=== PATIENT | female | born 1935 | race Caucasian/White ===

== ENCOUNTER 2016-10-28 02:18 | Emergency (ER) | payer OTHER ==
[2016-10-28 02:24] VITALS: BMI 18.3
[2016-10-28] MEDS ORDERED: CATAPRES TAB 0.2 MG PO ONE (03:13)
[2016-10-28] MEDS ORDERED: CATAPRES TAB 0.2 MG ONE (03:16)
--- NOTE | 2016-10-28 03:19 | DR.GENAD ---
HPI - PCP Primary Care Physician: GUSTAVO - Complaint/Symptoms Chief Complaint Doctors Comments: Patient states she has been taking her blood pressure tonight and it has been high for a while. States it was 189/85 earlier today and she went for a walk and it came down for a while then it went back up to 206/107 and 195/108. States she has been checking her blood pressure several times tonight and it has not come down. She denies chest pain , SOB, nausea, vomiting or blurred vision or headaches. states she is a patient of Dr. Kim and she has been taking Metoprolol 50mg twice daily for a long time with other medicines including Estradiol 0.5mg qhs. states they are remodeling her house since her and one of her dauhters is staying with her. She denies problems with her hands or feet swelling. States she has problems worrying about everyone. Chief Complaint:: PT STATES HER BP IS HIGH - Nurses notes reviewed Nurses Notes Review: Yes - Source History Provided: Patient - Mode of Arrival Mode of Arrival: Ambulatory - Timing Onset of Chief Complaint: 10/28/16 Came on: Gradually - Duration Duration: Constant How lon Duration: Days - Location Location: high blood press - Severity Severity: Moderate - Modifying Factors Worsens:: nothing Improves:: nothing PMH - PMH Past Medical History: Yes Past Medical History: Hypertension Past Surgical History: Yes Surgical History: Hysterectomy Past Surgical History Comment: CATARACT - Family History History of Family Medical Conditions: Yes Family Medical History: Cancer, OR - Social History Alcohol Use: None Do you use any recreational Drugs:: No Lives With: Family Lives Where: Home - infectious screening In the last 2 months have you had wt loss of >10#?: NO Have you had fever, night sweats or hemotysis?: No Have you traveled outside the country in the last 6 months?: No Isolation: Standard ROS - Review of Systems Constitutional: No Symptoms Reported Eyes: No Symptoms Reported ENTM: No Symptoms Reported Respiratoy: No Symptoms Reported Cardiovascular: No Symptoms Reported. negative: See HPI, Chest Pain, Edema, Palpitations, Syncope, Cyanosis, Skin Mottling, Other Gastrointestinal/Abdominal: No Symptoms Reported, See HPI. negative: Abdominal Pain, Constipation, Diarrhea, Nausea, Vomiting, Food Intolerance, Other Genitourinary: No Symptoms Reported Neurological: No Symptoms Reported Musculoskeletal: No Symptoms Reported Integumentary: No Symptoms Reported Hematologic/Lymphatic: No Symptoms Reported Endocrine: No Symptoms Reported Psychiatric: No Symptoms Reported, Anxiety PE - Vital Signs Vitals: Temperature 99.1 F Pulse Rate [Right Brachial] 55 Pulse Rate 65 Respiratory Rate 20 Blood Pressure [Right Arm] 102/64 Blood Pressure [Left Arm] 177/86 Blood Pressure 229/100 O2 Sat by Pulse Oximetry 100 - General Limitations: No Limitations General Appearance: Alert, In No Apparent Distress - Head Head Exam: Normal Inspection, Atraumatic, Normocephalic - Eyes Eye exam: Normal Appearance, PERRL, EOMI. negative: Scleral Icterus, Conjunctival Injection, Nystagmus, Miosis, Mydrasis, Periorbital Swelling, Periorbital Tenderness, Other - ENT ENT Exam: Normal Exam, Normal Oropharynx, Normal External Ear Exam, Mucous Membranes Moist, TM's Normal Bilaterally External Ear Exam: Normal External Inspection TM/Canal Exam: Bilateral Normal Nose Exam: Normal Nose Exam Mouth Exam: Normal Inspection Throat Exam: Normal Inspection - Neck Neck Exam: Normal Inspection, Full ROM, Trachea Midline. negative: Tenderness, Meningismus, Lymphadenopathy, Thyromegaly, Other - Chest Chest Inspection: Normal Inspection, Symmetric Chest Wall Rise - Respiratory Respiratory Exam: Normal Lung Sounds Bilat Respiratory Exam: Bilateral Clear to Auscultation - Cardiovascular Cardiovascular Exam: Regular Rate, Normal Rhythm, Normal Heart Sounds. negative : Bradycardia, Tachycardia, Irregular Rhythm, Systolic Murmur, Diastolic Murmur , Rubs, Gallop, Clicks, JVD, +S1, +S2, +S3, +S4, Other - Abdominal Exam Abdominal Exam: Normal Inspection, Normal Bowel Sounds, Soft. negative: Distention, Tenderness, Guarding, Rebound, Rigidity, Dimnished Bowel Sounds, Hyperactive Bowel Sounds, Hypoactive Bowel Sounds, Organomegaly, Trauma, Incision, Ascites, Mass, Bruit, Pulsatile Mass, Hernia, Other Abdominal Tenderness: negative: RUQ, RLQ, LUQ, LLQ, Epigastrium, Suprapubic, Diffuse, Mild, Moderate, Severe, Other - Extremities Extremities Exam: Normal Inspection, Full ROM, Normal Capillary Refill. negative: Tenderness, Edema, Joint Swelling, Calf Tenderness, Other - Back Back Exam: Normal Inspection, Full ROM. negative: Tenderness, (R) CVA Tenderness, (L) CVA Tenderness, Muscle Spasm, Paraspinal Tenderness, Vertebral Tenderness, Rashes, (R) Sciatic Notch Tenderness, (L) Sciatic Notch Tendern, (R ) Straight Leg Raise, (L) Straight Leg Raise, Other - Neurologic Neurological Exam: Alert, Oriented X3, CN II-XII Intact, Normal Gait, Reflexes Normal - Psychiatric Psychiatric Exam: Normal Affect, Normal Mood. negative: Depressed, Agitated, Anxious, Flat Affect, Manic, Homicidal Ideation, Suicidal Ideation, Other - Skin Skin Exam: Warm, Dry, Intact, Normal Color. negative: Rash, Cyanosis, Diaphoresis, Erythema, Pallor, Mottled, Other ROR - Labs Reviewed Laboratory Results Reviewed?: Yes (All labs and x-ray results reviewed and discussed with patient) Result Diagrams: 10/28/16 03:30 10/28/16 03:30 Laboratory: WBC 6.4 X10^3/uL (3.6-10.0) 10/28/16 03:30 RBC 4.48 X10^6/uL (3.5-5.4) 10/28/16 03:30 Hgb 13.4 g/dL (12.0-16.0) 10/28/16 03:30 Hct 38.0 % (36.0-47.0) 10/28/16 03:30 MCV 85.0 fL (80.0-100.0) 10/28/16 03:30 MCH 30.0 pg (27.0-34.0) 10/28/16 03:30 MCHC 35.3 g/dL (33.0-35.0) H 10/28/16 03:30 RDW 12.2 % (11.6-16.5) 10/28/16 03:30 Plt Count 301 X10^3/uL (150.0-450.0) 10/28/16 03:30 MPV 7.6 fL (7.4-11.0) 10/28/16 03:30 Neut % 53.5 % (42.0-75.0) 10/28/16 03:30 Lymph % 34.0 % (21.0-51.0) 10/28/16 03:30 [place] % 9.1 % (0.0-13.0) 10/28/16 03:30 Eos % 2.1 % (0.9-2.9) 10/28/16 03:30 Baso % 1.3 % (0.2-1.0) H 10/28/16 03:30 Neut # 3.5 x10^3/uL (2.2-4.8) 10/28/16 03:30 Lymph # 2.2 X10^3/uL (1.3-2.9) 10/28/16 03:30 [place] # 0.6 x10^3/uL (0.3-0.8) 10/28/16 03:30 Eos # 0.1 x10^3/uL (0.0-0.2) 10/28/16 03:30 Baso # 0.1 X10^3/uL (0.0-0.1) 10/28/16 03:30 Absolute Nucleated RBC 0.0 /100WBC 10/28/16 03:30 INR Target Range - 10/28/16 03:30 INR 0.96 (0.8-1.3) 10/28/16 03:30 PTT 27.1 SECONDS (22.9-36.5) 10/28/16 03:30 PTT Comment - 10/28/16 03:30 Sodium 135 mmol/L (136-145) L 10/28/16 03:30 Corrected Sodium TNP 10/28/16 03:30 Potassium 4.7 mmol/L (3.5-5.1) 10/28/16 03:30 Chloride 97 mmol/L (98-107) L 10/28/16 03:30 Carbon Dioxide 28.5 mmol/L (21-32) 10/28/16 03:30 BUN 9 mg/dL (7-18) 10/28/16 03:30 Creatinine 0.78 mg/dL (0.55-1.02) 10/28/16 03:30 Est GFR (MDRD) Af Amer > 60 (>60) 10/28/16 03:30 Est GFR (MDRD) Non-Af > 60 (>60) 10/28/16 03:30 Glucose 98 mg/dL (65-99) 10/28/16 03:30 Calcium 9.3 mg/dL (8.5-10.1) 10/28/16 03:30 Corrected Calcium TNP 10/28/16 03:30 Magnesium 1.9 mg/dL (1.7-2.9) 10/28/16 03:30 Total Bilirubin 0.50 mg/dL (0.2-1.0) 10/28/16 03:30 AST 16 Units/L (15-37) 10/28/16 03:30 ALT 21 Units/L (12-78) 10/28/16 03:30 Alkaline Phosphatase 73 Units/L (46-116) 10/28/16 03:30 Creatine Kinase 56 Units/L (26-192) 10/28/16 03:30 CK-MB (CK-2) 2.3 ng/mL (0-4.0) 10/28/16 03:30 CK/CKMB % Calc 4.1 % (<4) 10/28/16 03:30 Troponin I < 0.02 ng/mL (0-1.5) 10/28/16 03:30 Total Protein 8.3 g/dL (6.4-8.2) H 10/28/16 03:30 Albumin 4.1 g/dL (3.4-5.0) 10/28/16 03:30 Globulin 4.2 g/dL (2.5-4.5) 10/28/16 03:30 Albumin/Globulin Ratio 1.0 Ratio (1.1-2.1) L 10/28/16 03:30 - XRAY XRAY Interpreted by: Radiologist (CXR: Normal chest x-ray.) - EKG Rate: 63 [place]: Normal Rhythm: NSR Block: None ST: Nonsp - Diagnosis Discharge Problem: Essential hypertension, Anxiety neurosis - Discharge Plan Disposition: 01 HOME, SELF-CARE Condition: Stable - Follow ups/Referrals Follow ups/Referrals: Paulino Kim [Primary Care Provider] - 3 days - Instructions Instructions: Hypertension
[2016-10-28 03:45] LABS: BASOPHILS # (AUTO) 0.1 X10^3/uL (0.0-0.1); BASOPHILS % (AUTO) 1.3 % (0.2-1.0); EOSINOPHILS # (AUTO) 0.1 x10^3/uL (0.0-0.2); EOSINOPHILS % (AUTO) 2.1 % (0.9-2.9); HEMOGLOBIN 13.4 g/dL (12.0-16.0); LYMPHOCYTES # (AUTO) 2.2 X10^3/uL (1.3-2.9); MEAN CORPUSCULAR HGB CONC 35.3 g/dL (33.0-35.0); MEAN PLATELET VOLUME 7.6 fL (7.4-11.0); MONOCYTES # (AUTO) 0.6 x10^3/uL (0.3-0.8); MONOCYTES % (AUTO) 9.1 % (0.0-13.0); NEUTROPHILS # (AUTO) 3.5 x10^3/uL (2.2-4.8); NEUTROPHILS % (AUTO) 53.5 % (42.0-75.0); PLATELET COUNT 301 X10^3/uL (150.0-450.0); RED BLOOD COUNT 4.48 X10^6/uL (3.5-5.4); RED CELL DISTRIBUTION WIDTH 12.2 % (11.6-16.5); WHITE BLOOD COUNT 6.4 X10^3/uL (3.6-10.0)
--- NOTE | 2016-10-28 03:54 | RAD ---
EXAM: Chest X-ray INDICATION: Elevated blood pressure COMPARISION: No prior TECHNIQUE: AP, single view FINDINGS: The lungs are clear in the lung volumes are within normal limits. No pleural effusion or pneumothora x. The cardiac silhouette and mediastinum are normal. The regional skeleton is intact. IMPRESSION: Normal Chest X-Ray Reported By:
[2016-10-28 04:04] LABS: BLOOD UREA NITROGEN 9 mg/dL (7-18); CALCIUM 9.3 mg/dL (8.5-10.1); CARBON DIOXIDE 28.5 mmol/L (21-32); CHLORIDE 97 mmol/L (98-107); CREATININE 0.78 mg/dL (0.55-1.02); GLUCOSE 98 mg/dL (65-99); SODIUM 135 mmol/L (136-145); TROPONIN I < 0.02 ng/mL (0-1.5); eGFR BLACK RACES > 60 (>60); eGFR NON BLACK RACES > 60 (>60)
[2016-10-28 04:08] LABS: ALANINE AMINOTRANSFERASE 21 Units/L (12-78); ALBUMIN 4.1 g/dL (3.4-5.0); ALKALINE PHOSPHATASE 73 Units/L (46-116); ASPARTATE AMINO TRANSFERASE 16 Units/L (15-37); CKMB % 4.1 % (<4); CREATINE KINASE 56 Units/L (26-192); CREATINE KINASE MB 2.3 ng/mL (0-4.0); MAGNESIUM 1.9 mg/dL (1.7-2.9); TOTAL PROTEIN 8.3 g/dL (6.4-8.2)
[2016-10-28 06:44] VITALS: BP 120/68
== END 2016-10-28 06:45 | disposition home or self-care (01) ==
LOC: ER 02:18
DX: F41.0 Panic disorder [episodic paroxysmal anxiety] (principal); I10 Essential (primary) hypertension
CPT/HCPCS: 36415; 71010; 80053; 82550; 82553; 83735; 84484; 85025; 85610; 85730; 93005; 93010; 99283

== ENCOUNTER 2016-10-30 01:26 | Emergency (ER) | payer OTHER ==
[2016-10-30 01:34] VITALS: BMI 19.0
[2016-10-30] MEDS ORDERED: XANAX PO ONE (02:15)
--- NOTE | 2016-10-30 02:15 | DR.GENAD ---
HPI - PCP Primary Care Physician: GUSTAVO - HPI Comment HPI Comment: PATIENT BLOOD PRESSURE IS ELEVATED TONIGHT. EXTERNAL EAR PAIN NOTED TONIGHT. - Complaint/Symptoms Chief Complaint Doctors Comments: ELEVATED BP. Chief Complaint:: PT STATES, "MY BP IS HIGH AGAIN." - Nurses notes reviewed Nurses Notes Review: Yes - Source History Provided: Patient - Mode of Arrival Mode of Arrival: Ambulatory - Timing Onset of Chief Complaint: 10/30/16 Came on: Suddenly - Duration Duration: Constant Duration: Hours - Severity Severity: Moderate PMH - PMH Past Medical History: Yes Past Medical History: Hypertension Past Surgical History: Yes Surgical History: Hysterectomy - Family History History of Family Medical Conditions: Yes Family Medical History: Cancer, OR - Social History Alcohol Use: None Do you use any recreational Drugs:: No Lives With: Family - infectious screening In the last 2 months have you had wt loss of >10#?: NO Have you had fever, night sweats or hemotysis?: No Have you traveled outside the country in the last 6 months?: No Isolation: Standard ROS - Review of Systems Constitutional: No Symptoms Reported Eyes: No Symptoms Reported. negative: Eye Pain, Discharge ENTM: No Symptoms Reported. negative: Ear Pain, Nose Discharge, Nose Congestion , Throat Pain Respiratoy: No Symptoms Reported. negative: Productive Cough, Non-Productive Cough, Short of Breath, Wheezing, Hemoptysis Cardiovascular: negative: Chest Pain, Edema Gastrointestinal/Abdominal: No Symptoms Reported. negative: Abdominal Pain, Constipation, Diarrhea, Nausea, Vomiting Genitourinary: No Symptoms Reported. negative: Dysuria, Frequency, Hematuria Neurological: negative: Headache, Weakness, Dizziness Musculoskeletal: No Symptoms Reported, Muscle Pain Integumentary: No Symptoms Reported Hematologic/Lymphatic: No Symptoms Reported Endocrine: No Symptoms Reported All Other Systems: Reviewed and Negative PE - Vital Signs Vitals: Temperature 99.3 F Pulse Rate [Right Brachial] 80 Pulse Rate 73 Respiratory Rate 20 Blood Pressure [Right Arm] 179/82 Blood Pressure [Left Arm] 188/88 Blood Pressure 224/102 O2 Sat by Pulse Oximetry 100 - General Limitations: No Limitations General Appearance: Alert - Head Head Exam: Normal Inspection - Eyes Eye exam: Normal Appearance - ENT ENT Exam: Normal External Ear Exam External Ear Exam: Normal External Inspection TM/Canal Exam: Bilateral Normal Nose Exam: Normal Nose Exam Mouth Exam: Normal Inspection Throat Exam: Normal Inspection - Neck Neck Exam: Trachea Midline. negative: Tenderness, Meningismus, Lymphadenopathy - Chest Chest Inspection: Symmetric Chest Wall Rise - Respiratory Respiratory Exam: Normal Lung Sounds Bilat Respiratory Exam: Bilateral Clear to Auscultation - Cardiovascular Cardiovascular Exam: Regular Rate, Normal Rhythm, Normal Heart Sounds - Abdominal Exam Abdominal Exam: Normal Bowel Sounds, Soft. negative: Tenderness - Extremities Extremities Exam: Normal Inspection - Neurologic Neurological Exam: Alert, Oriented X3, CN II-XII Intact, Reflexes Normal. negative: Motor Sensory Deficit - Psychiatric Psychiatric Exam: Anxious - Skin Skin Exam: Erythema MDM - Additional Information Additional Information Obtained From: Family - Differential Diagnosis Differential Diagnosis: UNCONTROL HTN Course - Treatment Treatment: SEE ORDERS. BP MONITOR IN ED. ELEVATED. CLONIDINE GIVEN. BP DECREASING. RELATIVE WANT HALF THE DOSE. THE BLOOD PRESURE SLOWLY DECREASING. STILL HIGH. REST OF CLONIDINE GIVEN. BP STABILIZE AT 179/82. WILL GIVE AM BP MED AND D/C HOME. - Reevaluation 1st: Improved - Education/Counseling Education/Counseling: Patient, Family Educated On: Treatment - Diagnosis Discharge Problem: Hypertension Qualifiers: Hypertension type: essential hypertension Qualified Code(s): I10 - Essential ( primary) hypertension - Discharge Plan Disposition: HOME, SELF-CARE Condition: Stable - Follow ups/Referrals Follow ups/Referrals: Paulino Kim [Primary Care Provider] - 10/30/16 - Instructions Instructions: Hypertension Additional Instructions: RETURN TO ED IF WORSE. CONTINUE HOME MEDS.
[2016-10-30] MEDS ORDERED: XANAX ONE (02:20)
[2016-10-30] MEDS ORDERED: CATAPRES TAB 0.1 MG PO ONE ×2 (03:02→04:34)
[2016-10-30] MEDS ORDERED: CATAPRES TAB 0.1 MG ONE ×2 (03:06→04:34)
[2016-10-30 06:24] VITALS: BP 188/88
== END 2016-10-30 06:42 | disposition home or self-care (01) ==
LOC: ER 01:26
DX: I10 Essential (primary) hypertension (principal)
CPT/HCPCS: 99282